=== PATIENT | male | born 1975 | race Caucasian/White ===

== ENCOUNTER 2024-10-08 10:56 | Emergency (ER) | payer BC ==
[2024-10-08 11:08] VITALS: PULSE 74
--- NOTE | 2024-10-08 11:36 | ED ---
General Adult HPI - General Chief complaint: Syncope Stated complaint: Fall on Ice-Head Time Seen by Provider: 10/08/24 11:10 Source: patient, RN notes reviewed, old records reviewed Mode of arrival: ambulatory Limitations: physical limitation - History of Present Illness Initial comments: Is a 49-year-old male who presents to the emergency department stating that he slipped on the ice yesterday and fell he landed on his tailbone and hit his head on the ice he did not lose consciousness. Patient denies any neck pain. Patient states he also hit his elbow but he has full range of motion is only mildly tender. Patient states today he got up and it was hurting in his tailbone to even walk and then he got kind of lightheaded and he passed out. Igor singh states he is passed out multiple times in the past as well. Patient states he fell again and hit his head on the way down. Patient states he does have a mild headache he has no neck pain no numbness no weakness. Patient continues to have tenderness in the tailbone region. - Related Data Home Medications Medication Instructions Recorded Confirmed No Known Home Medications 10/08/24 10/08/24 Allergies Allergy/AdvReac Type Severity Reaction Status Date / Time No Known Allergies Allergy Verified 10/08/24 11:59 Review of Systems ROS Statement: Those systems with pertinent positive or pertinent negative responses have been documented in the HPI. ROS Other: All systems not noted in ROS Statement are negative. Past Medical History Additional Past Medical History / Comment(s): bad S1 Past Surgical History: Orthopedic Surgery Past Psychological History: No Psychological Hx Reported Smoking Status: Never smoker Past Alcohol Use History: Occasional Past Drug Use History: None Reported General Exam - General Exam Comments Initial Comments: GENERAL: Patient is well-developed and well-nourished. Patient is nontoxic and well- hydrated and is in mild distress. ENT: Neck is soft and supple. No significant lymphadenopathy is noted. Oropharynx is clear. Moist mucous membranes. Neck has full range of motion without eliciting any pain. Patient has an area on the scalp of the left parietal region is mildly tender no abrasion or hematoma noted EYES: The sclera were anicteric and conjunctiva were pink and moist. Extraocular movements were intact and pupils were equal round and reactive to light. Eyelids were unremarkable. ABDOMEN: Soft and nontender with normal bowel sounds. SKIN: Skin is clear with no lesions or rashes and otherwise unremarkable. NEUROLOGIC: Patient is alert and oriented x3. Cranial nerves II through XII are grossly intact. Motor and sensory are also intact. Normal speech, volume and content. Symmetrical smile. MUSCULOSKELETAL: Normal extremities with adequate strength and full range of motion. Patient has tenderness in the coccyx. LYMPHATICS: No significant lymphadenopathy is noted PSYCHIATRIC: Normal psychiatric evaluation. Limitations: physical limitation Course Vital Signs 10/08/24 10/08/24 11:02 12:50 Temperature 97.9 F 98.5 F Pulse Rate 74 Pulse Rate [ 74 Pulse Oximetery ] Respiratory 18 16 Rate Blood Pressure 113/84 Blood Pressure 120/81 [Right Arm Sitting] Blood Pressure 124/85 [Right Arm Standing] Blood Pressure 121/84 [Right Arm Supine] O2 Sat by Pulse 98 Oximetry Medical Decision Making - Medical Decision Making EKG is interpreted by myself. EKG shows sinus rhythm at 69 bpm DE 173 QRS is 85 QT interval 373 QTc is 393. Patient's EKG shows no ST segment elevation or depression. Was pt. sent in by a medical professional or institution (Dr. PA, FLEXOGRAPHIC PRESS OPERATOR, urgent care, hospital, or assisted...) When possible be specific @ -No Did you speak to anyone other than the patient for history (EMS, parent, family, police, friend...)? What history was obtained from this source @ -No Did you review nursing and triage notes (agree or disagree)? Why? @ -I reviewed and agree with nursing and triage notes Were old charts reviewed (outside hosp., previous admission, EMS record, old EKG, old radiological studies, urgent care reports/EKG's, assisted records)? Report findings @ -No old charts were reviewed Differential Diagnosis? @ -Skull fracture, subdural hematoma, subarachnoid, epidural, coccyx fracture, this is not an all-inclusive list EKG interpreted by me (3pts min.). @ -As above X-rays interpreted by me (1pt min.). @ -X-ray of the coccyx and sacrum showed no acute abnormality CT interpreted by me (1pt min.). @ -CT of the brain shows no acute normality U/S interpreted by me (1pt. min.). @ -None done What testing was considered but not performed or refused? (CT, X-rays, U/S, labs)? Why? @ -None What meds were considered but not given or refused? Why? @ -None Did you discuss the management of the patient with other professionals (aspen erazo i.e. , PA, FLEXOGRAPHIC PRESS OPERATOR, lab, RT, psych nurse, social media intern, senior hadoop developer, teacher, international first officer, embedded case manager)? Give summary @ -No Was smoking cessation discussed for >3mins.? @ -No Was critical care preformed (if so, how long)? @ -No Were there social determinants of health that impacted care today? How? (Homelessness, low income, unemployed, alcoholism, drug addiction, transportation, low edu. Level, literacy, decrease access to med. care, half-way, rehab)? @ -No Was there de-escalation of care discussed even if they declined (Discuss DNR or withdrawal of care, Hospice)? DNR status @ -No What co-morbidities impacted this encounter? (DM, HTN, Smoking, COPD, CAD, Cancer, CVA, ARF, Chemo, Hep., AIDS, mental health diagnosis, sleep apnea, morbid obesity)? @ -None Was patient admitted / discharged? Hospital course, mention meds given and route, prescriptions, significant lab abnormalities, going to OR and other pertinent info. @ -Patient had orthostatics done and showed no change with position and blood pressure Undiagnosed new problem with uncertain prognosis? @ -No Drug Therapy requiring intensive monitoring for toxicity (Heparin, Nitro, Insulin, Cardizem)? @ -No Were any procedures done? @ -No Diagnosis/symptom? @ -Head injury Acute, or Chronic, or Acute on Chronic? @ -Acute Uncomplicated (without systemic symptoms) or Complicated (systemic symptoms)? @ -Uncomplicated Side effects of treatment? @ -No Exacerbation, Progression, or Severe Exacerbation? @ -No Poses a threat to life or bodily function? How? (Chest pain, [place], [place], pneumonia, PE, COPD, DKA, ARF, appy, cholecystitis, CVA, Diverticulitis, Homicidal, Suicidal, threat to staff... and all critical care pts) @ -No Diagnosis/symptom? @ -Coccyx contusion Acute, or Chronic, or Acute on Chronic? @ -Acute Uncomplicated (without systemic symptoms) or Complicated (systemic symptoms)? @ -Uncomplicated Side effects of treatment? @ -None Exacerbation, Progression, or Severe Exacerbation] @ -No Poses a threat to life or bodily function? @ -No Disposition Clinical Impression: Head injury, Coccyx contusion Disposition: HOME SELF-CARE Instructions (If sedation given, give patient instructions): Head Injury (ED), Coccyx Injury (ED) Additional Instructions: Patient should get a inflatable donut and use that to protect his coccyx from pressure while sitting. Patient should take Motrin 600 every 6 hours Patient should return if there is any altered mental status or new or worsening symptoms Is patient prescribed a controlled substance at d/c from ED?: No Referrals: None,Stated [Primary Care Provider] - 1-2 days Time of Disposition: 12:54
--- NOTE | 2024-10-08 12:26 | XR ---
EXAMINATION TYPE: XR sacrum coccyx DATE OF EXAM: 10/08/2024 12:20 PM INDICATION: Patient age:Male; 49 years old; Reason for study: Fall; PHH. pain COMPARISON: None TECHNIQUE: The sacrum/coccyx was examined in 2 projections including AP and lateral views. FINDINGS: There is no evidence of fracture or dislocation. 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 There is no soft tissue abnormality. Pelvic phleboliths. IMPRESSION: No acute osseous pathology. [facility], , 10/08/2024 12:24 PM
--- NOTE | 2024-10-08 12:27 | CT ---
EXAMINATION TYPE: CT brain wo con DATE OF EXAM: 10/08/2024 12:14 PM COMPARISON: 03/14/2010. CLINICAL INDICATION: Male, 49 years old with history of Fall struck head, Fall, hit head on ice +LOC TECHNIQUE: Brain: Axial CT images of the brain were obtained with coronal and sagittal reformats created and rev iewed. Contrast used: None. Oral contrast used: None. CT DLP: 1198.2 mGycm, Automated exposure control for dose reduction was used. FINDINGS: Brain: Extra-axial spaces: No abnormal extra-axial fluid collections. Ventricular system: No evidence for hydrocephalus, septum cavum pellucidum. Cerebral parenchyma: No acute intraparenchymal hemorrhage or mass effect. The figueroa-white junction is well differentiated. Cerebellum: Unremarkable. Mass effect: No evidence of midline shift. Intracranial vasculature: unremarkable Soft tissues: Normal. Calvarium/osseous structures: No depressed skull fracture. Paranasal sinuses and mastoid air cells: Mild scattered paranasal sinus disease. Visualized orbits: Orbital contents are intact. IMPRESSION: No acute intracranial process. [facility], , 10/08/2024 12:25 PM
[2024-10-08 12:52] VITALS: BP 121/84; RESP 16; TEMP 98.5
== END 2024-10-08 13:05 | disposition home or self-care (01) ==
LOC: EC 10:56
DX: S09.90XA Unspecified injury of head, initial encounter (principal); S30.0XXA Contusion of lower back and pelvis, initial encounter; W00.0XXA Fall on same level due to ice and snow, initial encounter
CPT/HCPCS: 70450; 72220; 93005; 99284